=== PATIENT | male | born 1940 | race Caucasian/White ===

== ENCOUNTER → 2017-06-22 | Outpatient (CLI) | payer MEDICARE, BC ==
--- NOTE | 2017-06-22 13:02 | CT ---
EXAMINATION TYPE: CT abdomen wo con DATE OF EXAM: 06/22/2017 COMPARISON: NONE HISTORY: Follow up renal cancer per patient. Left sided nephrectomy CT DLP: 731 mGycm Automated exposure control for dose reduction was used. TECHNIQUE: Helical acquisition of images was performed from the lung bases through the top of iliac crest to include entire abdomen. CONTRAST: Performed with Oral Contrast and without IV contrast. FINDINGS: There is dependent atelectasis in the dependent portions of the lungs. There is no pericard ial fluid. There is a small left effusion. The heart is not enlarged. There is a small hiatal hernia. There is a partial eventration of the right hemidiaphragm. Within the abdomen, the liver is normal in size. There is a 5.6 mm low attenuating lesion in the medi al segment of the left lobe of the liver too small accurately characterize. There is evidence of chol elithiasis. The spleen is unremarkable. Both adrenal glands are normal. Left kidney has been removed. There are multiple right-sided renal calculi. The largest is in the low er pole and measures 1.7 cm. There is parapelvic cysts in the upper pole. There are are low attenuati ng lesions arising from the upper pole either representing 2 cysts measuring 4 and 4.8 cm respectivel y. This should BE confirmed with ultrasound to exclude a solid lesion. The pancreas is poorly visualized. There is no significant retroperitoneal adenopathy. There is a moderate stool burden. There is diverticular change in the left side of the colon. Small b owel loops are normal. There is facet arthropathy in the lower lumbar facets. There are 2 sclerotic foci within the left maryjane ac bone. This hypertrophic spondylosis in the dorsal spine. IMPRESSION: 1. STATUS POST LEFT NEPHRECTOMY. 2. SMALL HIATAL HERNIA. 3. PARTIAL EVENTRATION OF THE RIGHT HEMIDIAPHRAGM. 4. TINY LESION IN THE MEDIAL SEGMENT OF THE LEFT LOBE OF THE LIVER TOO SMALL ACCURATELY CHARACTERIZE. THIS SHOULD BE FURTHER INVESTIGATED WITH ULTRASOUND. 5. RIGHT-SIDED NEPHROLITHIASIS. 6. PARAPELVIC CYSTS IN THE UPPER POLE ON THE RIGHT. 7. COMPLEX LOW ATTENUATING MASS IN THE UPPER POLE OF THE RIGHT. ULTRASOUND WOULD BE SUGGESTED TO EXCL UDE A SOLID MASS. 8. CONSTIPATION. 9. DEGENERATIVE CHANGES WITHIN THE SPINE. 10. 2 SCLEROTIC FOCI WITHIN THE LEFT ILIAC BONE. ALTHOUGH THESE LIKELY REPRESENT BONE ISLANDS NUCLEAR MEDICINE WHOLE BODY BONE SCAN WOULD BE SUGGESTED TO EXCLUDE METASTASES.
== END | disposition home or self-care (01) ==
LOC: RADCTMAIN 11:48
PROVIDERS: ATTEND Urology
DX: C64.1 Malignant neoplasm of right kidney, except renal pelvis (principal); K76.9 Liver disease, unspecified; N20.0 Calculus of kidney; N28.1 Cyst of kidney, acquired; K59.00 Constipation, unspecified; N28.89 Other specified disorders of kidney and ureter; K44.9 Diaphragmatic hernia without obstruction or gangrene; Z90.5 Acquired absence of kidney
CPT/HCPCS: 74150

== ENCOUNTER → 2017-09-06 | Outpatient (CLI) | payer MEDICARE, BC ==
--- NOTE | 2017-09-06 10:06 | US ---
EXAMINATION TYPE: US abdomen comp/pelvis limited DATE OF EXAM: 09/06/2017 COMPARISON: CT abdomen June 22, 2017 CLINICAL HISTORY: C64.4 R Kidney Carcinoma R32 Urinary Incontinence. H/O renal carcinoma, left kidney removed, pt states he feels unable to empty bladder completely EXAM MEASUREMENTS: Liver Length: 16.0 cm Gallbladder Wall: 0.2 cm CBD: 0.4 cm Spleen: 13.2 cm Right Kidney: 15.3 x 7.2 x 7.0 cm Left Kidney: Surgically absent Post Void Residual: 37.8 mL Pancreas: Obscured by bowel gas Liver: Cyst with septation= 1.2 x 0.8 x 1.2 cm/ Ill-defined hypoechoic lesion left lobe= 1.4 x 1.2 x 1.3 cm Gallbladder: Non-mobile gallstones in neck CBD: wnl Spleen: Slightly enlarged Right Kidney: Complex lesion upper pole= 7.6 x 4.2 x 4.3 cm, multiple renal calculi, largest at lowe r pole= 1.2 cm Left Kidney: Surgically absent Upper IVC: wnl Abd Aorta: Proximal portion upper limits of normal, mid and distal obscured by overlying bowel gas Bladder: Irregular posterior wall Bilateral Jets Seen No Normal Post Void Residual (normal less than 50ml) Yes Suboptimal study as detailed above. Visualized liver is heterogeneously hyperechoic in appearance whi ch correlates with diffuse fatty infiltration on CT. Evaluation for focal masses is suboptimal due to the marked heterogeneity. Technologist castillo nonspecific 1.4 cm round slightly hypoechoic lesion lef t hepatic dome too small to further characterize per presumed benign. Shadowing gallstones are seen in gallbladder which correlates with CT. Some are felt not mobile durin g real-time scanning per technologist towards the neck. No pericholecystic fluid collection or abnorm al gallbladder wall thickening is seen. Multiple shadowing right-sided renal calculi are redemonstrated. There is partial exophytic lobulated nonsimple cyst upper pole level right kidney with suggestion of septation that warrants follow-up es pecially given patient's history of left-sided renal cell carcinoma. Spleen is mildly enlarged in size at 13.2 cm on long axis. No suspicious focal intrasplenic mass is p resent. Urinary bladder is poorly distended. Bilateral distal ureter jets are not seen. After voiding there i s slight decrease in volume, calculated volume is just under 40 cc. Prevoid volume is around 70 cc. IMPRESSION: 1. A lobulated partially exophytic nonsimple 7.6 cm cyst upper pole level right kidney, cystic neopla sm needs to be excluded especially given history of left-sided renal cell carcinoma, further investig ation with multi phase renal protocol CT or MRI is advised. 2. Poor voiding of the bladder with only emptying of 35-40% on attempted voiding. 3. Gallstones redemonstrated without secondary ultrasound evidence for acute cholecystitis.
== END | disposition home or self-care (01) ==
LOC: RADUSWWP 08:52
PROVIDERS: ATTEND Family Medicine
DX: C64.9 Malignant neoplasm of unspecified kidney, except renal pelvis (principal); N28.1 Cyst of kidney, acquired; K80.20 Calculus of gallbladder without cholecystitis without obstruction
CPT/HCPCS: 76700; 76857

== ENCOUNTER 2019-03-11 09:17 | Day surgery (SDC) | payer MEDICARE, BC ==
[2019-03-06 15:44] VITALS: BMI 36.6
[~2019-03-11 09:17] MED LIST: LACTATED RINGERS 1,000 ML IV SCH
[2019-03-11 11:04] VITALS: RESP 16; TEMP 97.8
[2019-03-11] MEDS ORDERED: LIDOCAINE 1% 20 ML VIAL (10MG/ML) FOR IV START INTRADERMA ONE (11:21)
[2019-03-11] MEDS ORDERED: PROPOFOL 10 MG/ML 20 ML VIAL IV ONE (13:13)
--- NOTE | 2019-03-11 14:07 | P.PCN ---
Date of Procedure: 03/11/19 Description of Procedure: BRIEF HISTORY: 78-year-old male seen in clinic with complaints of rectal bleeding, dark stool and hemorrhoids. At that time he was reporting the sensation of incomplete evacuation. He denied any of the abdominal pain. He did report a history of urinary bowel incontinence. His last colonoscopy was reported as proximal been 6 years ago at which time he had the procedure as part of his workup prior to his nephrectomy. He reports soft bowel movements approximately 4 times daily and is been having blood per rectum for possibly 4 months. PROCEDURE PERFORMED: Colonoscopy with polypectomy. PREOPERATIVE DIAGNOSIS: Painless rectal bleeding, altered bowel function. ESTIMATED BLOOD LOSS: Minimal. IV sedation per Anesthesia. PROCEDURE: After informed consent was obtained, the patient, was brought into the endoscopy unit. IV sedation was administered by Anesthesia under continuous monitoring. Digital rectal examination was normal. Initially the Olympus CF-190 flexible video colonoscope was then inserted in the rectum, gradually advanced into the cecum without any difficulty. Careful examination was performed as the scope was gradually being withdrawn. Ileocecal valve and the appendiceal orifice were visualized and appeared normal. Terminal ileum was intubated and appeared normal. Prep was excellent. Mucosa of the cecum, ascending colon, transverse colon, descending colon, sigmoid colon, and rectum appeared normal. Small 1 mm sessile cecal polyp removed with cold forcep polypectomy. Diminutive 3 mm transverse colon polyp removed with cold forcep polypectomy. Diminutive 3 mm rectal polyp removed with cold forcep polypectomy. Moderate diverticulosis worse in the left colon. Mild internal hemorrhoids. Retroflexion was performed in the rectum and no lesions were seen. The patient tolerated the procedure well. IMPRESSION: 3 diminutive polyps removed with cold forcep polypectomy from the cecum, transverse colon and rectum. Moderate diverticulosis. Mild internal hemorrhoids. RECOMMENDATIONS: Findings of this examination were discussed with the patient. Okay to resume high-fiber diet. Would recommend local hemorrhoidal treatment with sitz baths, and tux wipes. Await pathology from biopsies. Follow up in gastroenterology clinic as previously scheduled.
[2019-03-11 14:16] VITALS: BP 124/85; PULSE 83
== END 2019-03-11 15:02 | disposition home or self-care (01) ==
LOC: ORWHC2ENDO 09:17
PROVIDERS: ATTEND Internal Medicine
DX: D12.3 Benign neoplasm of transverse colon (principal); K57.90 Diverticulosis of intestine, part unspecified, without perforation or abscess without bleeding; D12.8 Benign neoplasm of rectum; K63.5 Polyp of colon; K64.8 Other hemorrhoids; Z88.8 Allergy status to other drugs, medicaments and biological substances; E78.5 Hyperlipidemia, unspecified; I10 Essential (primary) hypertension; I48.91 Unspecified atrial fibrillation; E07.9 Disorder of thyroid, unspecified; Z85.528 Personal history of other malignant neoplasm of kidney; Z79.01 Long term (current) use of anticoagulants; Z79.890 Hormone replacement therapy; Z79.899 Other long term (current) drug therapy
CPT/HCPCS: 88305; 45380; J2704

== ENCOUNTER → 2019-07-23 | Outpatient (CLI) | payer MEDICARE, BC ==
--- NOTE | 2019-07-23 16:43 | XR ---
EXAMINATION TYPE: XR abdomen 1V DATE OF EXAM: 07/23/2019 HISTORY: Pain Comparison: None.Single KUB is submitted for interpretation. Findings: Right renal calculi: Multiple large right-sided renal calculi measuring 2.3 cm, 1.4 cm and 1.5 cm res pectively. Right ureteral calculi: None Visualized. Left renal calculi: Cannot exclude a 1 cm calculus overlying the upper pole of the left kidney. Left ureteral calculi: 6.5 mm calculus left mid ureter. Pelvic calcifications: None Visualized. Bowel gas pattern is unremarkable. No free air. No mass effects. IMPRESSION: 1. Bilateral nephrolithiasis. In addition I cannot exclude left-sided ureterolithiasis as noted.
== END | disposition home or self-care (01) ==
LOC: RADXRMAIN 11:32
PROVIDERS: ATTEND Urology
DX: N20.0 Calculus of kidney (principal)
CPT/HCPCS: 74018

== ENCOUNTER → 2019-08-12 | Outpatient (CLI) | payer MEDICARE, BC ==
[2019-08-12 12:18] LABS: Appearance,Urine Clear (Clear); Bilirubin,Urine Negative (Negative); Blood,Urine Negative (Negative); Color,Urine Yellow; Glucose,Urine (UA) Negative (Negative); Hyaline Casts,Urine 1 /lpf (0-2); Ketones,Urine Negative (Negative); Leukocyte Esterase,Urine Trace (Negative); Mucus,Urine Rare /hpf; Nitrite,Urine Negative (Negative); Protein,Urine Negative (Negative); RBC,Urine <1 /hpf (0-5); Specific Gravity,Urine 1.023 (1.001-1.035); Squamous Epithelial Cell,Urine <1 /hpf (0-4); Urobilinogen,Urine <2.0 mg/dL (<2.0); WBC,Urine 8 /hpf (0-5)
== END | disposition home or self-care (01) ==
LOC: LABPAT 10:35
PROVIDERS: ATTEND Urology
DX: Z01.812 Encounter for preprocedural laboratory examination (principal); N20.0 Calculus of kidney; I10 Essential (primary) hypertension; Z79.899 Other long term (current) drug therapy
CPT/HCPCS: 81001; 86850; 86900; 86901; 87086

== ENCOUNTER 2019-08-19 12:21 | Inpatient (IN) | payer MEDICARE, BC ==
--- NOTE | 2019-08-19 07:38 | P.GSHP ---
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, He has a history if kidney stones and has increasing growth of the stones on the right They are now large We have decided to remove them so they don't compromise his solitary kidney The risks and complications have been discussed - Constitutional Constitutional: Denies chills, Denies fever - EENT Eyes: denies blurred vision, denies pain Ears, nose, mouth and throat: Denies headache, Denies sore throat - Cardiovascular Cardiovascular: Denies chest pain, Denies shortness of breath - Respiratory Respiratory: Denies cough, Denies 7 - Gastrointestinal Gastrointestinal: Denies abdominal pain, Denies diarrhea, Denies nausea, Denies vomiting - Genitourinary (Female) Genitourinary: Denies dysuria, Denies hematuria - Genitourinary (Male) Genitourinary: Denies dysuria, Denies hematuria - Musculoskeletal Musculoskeletal: Denies myalgias - Integumentary Integumentary: Denies pruritus, Denies rash - Neurological Neurological: Denies numbness, Denies weakness - Psychiatric Psychiatric: Denies anxiety, Denies depression - Endocrine Endocrine: Denies fatigue, Denies weight change Past Medical History Past Medical History: Atrial Fibrillation, Asthma, Cancer, Chest Pain / Angina, Heart Failure, COPD, GERD/Reflux, Hyperlipidemia, Hypertension, Osteoarthritis (OA), Pneumonia, Sleep Apnea/CPAP/BIPAP, Thyroid Disorder Additional Past Medical History / Comment(s): occ. palpitations, no cpap used, hx rectal bleeding, diverticulitis, stage III chronic kidney disease, hx left kidney cancer, hx bowel obstruction, weakness left leg, neuropathy julienne feet, c- diff February 2013, now having low BP, pneumonia 06/2019, History of Any Multi-Drug Resistant Organisms: None Reported Past Surgical History: Bowel Resection, Heart Catheterization, Hernia Repair, Tonsillectomy Additional Past Surgical History / Comment(s): left nephrectomy, bowel resection for obstruction x 2, ventral hernia reapair, julienne inguinal hernia, julienne cataract, repair macular pucker-not sure which eye Past Anesthesia/Blood Transfusion Reactions: Unable to Obtain Additional Past Anesthesia/Blood Transfusion Reaction / Comment(s): adopted-no family hx Smoking Status: Former smoker - Past Family History Mother Family Medical History: Unable to Obtain Additional Family Medical History / Comment(s): adopted Medications and Allergies Home Medications Medication Instructions Recorded Confirmed Type Albuterol Inhaler [Ventolin Hfa 2 puff INHALATION QID PRN 03/06/19 08/14/19 History Inhaler] Atorvastatin Calcium [Lipitor] 20 mg PO HS 03/06/19 08/14/19 History Fluticasone Nasal Noble [Flonase 1 spray EA NOSTRIL DAILY 03/06/19 08/14/19 History Nasal Noble] Levothyroxine Sodium [Synthroid] 50 mcg PO DAILY 03/06/19 08/14/19 History Metoprolol Tartrate [Lopressor] 50 mg PO BID 03/06/19 08/14/19 History Mometasone Furoate [Asmanex] 1 puff INHALATION BID 03/06/19 08/14/19 History Omeprazole [PriLOSEC] 20 mg PO AC-BRKFST 03/06/19 08/14/19 History Potassium Chloride [K-Tab ER] 10 meq PO DAILY 03/06/19 08/14/19 History Spironolactone [Aldactone] 25 mg PO DAILY 03/06/19 08/14/19 History Tamsulosin HCl [Flomax] 0.4 mg PO BID 03/06/19 08/14/19 History Warfarin [Coumadin] 5 mg PO HS 03/06/19 08/14/19 History Furosemide [Lasix] 20 mg PO BID 08/14/19 08/14/19 History Ipratropium-Albuterol Nebulize 0 ml INHALATION TID PRN 08/14/19 08/14/19 History [Duoneb 0.5 mg-3 mg/3 ml Soln] Midodrine [ProAmatine] 10 mg PO TID 08/14/19 08/14/19 History Nitroglycerin Sl Tabs [Nitrostat] 0.4 mg SUBLINGUAL Q5M PRN 08/14/19 08/14/19 History Allergies Allergy/AdvReac Type Severity Reaction Status Date / Time lactose Allergy Unknown Verified 08/14/19 14:41 quinidine Allergy Swelling Verified 08/14/19 14:40 dust,grass,animal dander Allergy Dyspnea Uncoded 08/14/19 14:40 Surgical - Exam - General well developed, well nourished, no distress - Eyes PERRL - ENT no hearing loss - Neck trachea midline - Cardiovascular Rhythm: irregularly irregular - Abdomen Abdomen: soft, non tender - Genitourinary normal penis with no external lesions, testicles present - Rectum Rectum: normal sphincter tone - Integumentary no rash, no growths - Neurologic normal coordination, normal sensation - Musculoskeletal normal gait, normal posture - Psychiatric oriented to time, oriented to person, oriented to place, speech is normal, memory intact Results - Imaging Abdominal x-ray: report reviewed, image reviewed CT scan - abdomen: report reviewed, image reviewed CT scan - pelvis: report reviewed, image reviewed Assessment and Plan Assessment: Impression: Large right renal calculi Plan> Pcnl right
[2019-08-19] MEDS ORDERED: DEXAMETHASONE SOD PHOSPHATE 10 MG/ML 1 ML VIAL IV ONE (13:28)
[2019-08-19] MEDS ORDERED: MIDAZOLAM 2 MG/2 ML VIAL IV PRN (13:28)
[2019-08-19] MEDS ORDERED: ONDANSETRON 4 MG/2 ML VIAL IVP ONE (13:28)
--- NOTE | 2019-08-19 13:36 | XR ---
KUB HISTORY: Kidney stones Frontal KUB submitted and correlated to abdomen 07/23/2019 Calcification superimposed over the right kidney are again noted. Largest measures approximately 2.4 cm at the lower pole. Intermediate sized density measuring 15 mm on prior exam is no longer seen. Sma ller calculi are present overlying the lower pole the right kidney, at least 3, 2 of which are parenc hymal measuring approximately 6 to 7 mm. Smaller calcification measures 6 mm at this level. There is a metallic density superimposed over the upper pole the right kidney measuring approximately 7 to 8 m m. Focus of increased attenuation overlying the left sacral ala and ilium region is indeterminate but may represent bone islands or possibly intra-abdominal calcification. Possible phlebolith present in the right hemipelvis. Multiple surgical clips are present. No evident bowel obstruction or pneumoper itoneum. IMPRESSION: Right-sided nephrolithiasis. Additional findings above.
[2019-08-19] MEDS ORDERED: LIDOCAINE 1% 20 ML VIAL (10MG/ML) FOR IV START INTRADERMA ONE (13:45)
[2019-08-19] MEDS: LACTATED RINGERS 1,000 ML IV SCH (13:53)
[2019-08-19] MEDS ORDERED: LIDOCAINE 1% INJ 10MG/ML (20 ML MDV) ONE (13:54)
[2019-08-19] MEDS ORDERED: fentaNYL (PF) 50 MCG/ML 2 ML AMP ONE (13:54)
[2019-08-19] MEDS ORDERED: PROPOFOL 10 MG/ML 20 ML VIAL IV ONE (13:54)
[2019-08-19] MEDS ORDERED: PHENYLEPHRINE-0.9% NACL SYG 1 MG/10 ML SYRINGE ONE (13:54)
[2019-08-19] MEDS ORDERED: SUCCINYLCHOLINE CHLORIDE 100 MG/5 ML SYR IV ONE (13:54)
[2019-08-19 14:10] LABS: INR 1.6 (<1.2)
[2019-08-19] MEDS ORDERED: IOPAMIDOL-370 50ML BTL MISCELLANE ONE ×2 (14:17→15:18)
[2019-08-19] MEDS ORDERED: ALBUTEROL NEBULIZED 2.5 MG/3 ML INHALATION PRN (15:38)
[2019-08-19] MEDS ORDERED: NITROGLYCERIN SL TABS 0.4 MG TAB SUBLINGUAL PRN (15:38)
[2019-08-19] MEDS ORDERED: MAG HYDROX/AL HYDROX/SIMETH 30 ML CUP PO PRN (15:42)
[2019-08-19] MEDS ORDERED: NALOXONE 0.4 MG/ML 1 ML VIAL IV PRN (15:43)
[2019-08-19] MEDS ORDERED: HYDROmorphone PCA 10 MG/50 ML BAG IV PRN (15:43)
--- NOTE | 2019-08-19 15:54 | P.OP ---
Date of Procedure: 08/19/19 Preoperative Diagnosis: Right renal stone, large, solitary kidney Postoperative Diagnosis: Same Procedure(s) Performed: Cystoscopy, placement of 5-Austrian occluding balloon catheter right, percutaneous nephrostomy (Dr. Macedo) percutaneous nephroscopy right, per placement of 20- Austrian reentry nephrostomy [place]ot Anesthesia: SAMMIE Surgeon: Kris Harris Estimated Blood Loss (ml): 100 Pathology: none sent Condition: stable Disposition: PACU Indications for Procedure: The patient's a 78-year-old gentleman with a solitary right kidney who has a enlarging right renal stone. The stone is now greater than 2 cm. We have been watching this. Unfortunately the stone is almost doubled size in the last 2 years. I therefore recommended a percutaneous nephrostolithotomy to remove the large stone. My goal is to protect the kidney Description of Procedure: The patient is brought to the operating suite. He is given a general endotracheal anesthesia on the transport gurney. He's placed in a frog position with a sterile prep and drape. Cystoscopy Foroblique lens and 22-Austrian sheath identifies a normal urethra. The prostates minimally obstructing. The right ureteral orifice is identified and intubated with a 5-Austrian occluding balloon catheter which is passed up into the renal pelvis. It is secured to a 16-Austrian Herrera. The patient is placed in a prone position with care to airways and extremities. Sterile prep and drape was administered. Dr. Macedo of radiology performed or cutaneous access to the calyx that the large stone appears to reside in. We dilate the tract to 30-Austrian. Introduced the rigid sheath and looked throughout the collecting system on unable to identify the stone. An intraoperative nephrostogram identifies a stone being in an anterior calyx and relieve intubated the posterior calyx overlying the anterior calyx r adiographically. I attempted to pass a flexible scope into the anterior calyx but due to bleeding and it is difficult to do so. We discussed the possibility of intubating an upper pole calyx hours closer to the lung than I would like. I thus decided to terminate the procedure. My plan is to do a second look nephroscopy after the bleeding and swelling subsides. Hopefully can get in the anterior calyx and used laser lithotripsy to break the stone. The other options will be to do ureteroscopy, a second nephrostomy tube remained shockwave lithotripsy. Due to the long spidery calyces and a small intrarenal pelvis and the anatomy is complicating the situation. A 20-Austrian reentry nephrostomy tube was placed over the working wire. It is secured to the skin. The patient awake and returned recovery in good condition. Blood loss is approximately 100 mL. The situation has been discussed with the family.
--- NOTE | 2019-08-19 16:04 | FL ---
EXAMINATION TYPE: FL Perc Nephrostomy New Access DATE OF EXAM: 08/19/2019 COMPARISON: NONE HISTORY: Hydronephrosis, ureteral obstruction with staghorn calculus. PROCEDURE: Maximal barrier technique was utilized. The skin overlying the right kidney was localized using fluo roscopy and the overlying skin prepped and draped. Lidocaine used for local anesthesia. Skin madelaine w as made with a scalpel. Access was gained under fluoroscopy, following placement of a ureteral occlu ethan balloon by the referring clinician and instillation of air in the renal collecting system with a 21-gauge needle to the kidney. A suitable posterior calyx was chosen. A 0.018 inch wire was [employer]. The access site was dilated and subsequently a sheath was advanced into the renal pelvis follow ing dilation with balloon along the tract. Urine returned in the hub of the catheter. Lower pole calc ulus is within an anterior calyx and not well accessed from the nephrostomy site. Nephrostomy tube pl aced by the referring clinician. The patient remained in stable condition without complication. The patient was discharged to observation in the care of anesthesia. 12 minutes 13 seconds fluoroscopy time, intraoperative C-arm image documents the procedure IMPRESSION: STATUS POST NEPHROSTOMY PLACEMENT FOR NEPHROLITHOTOMY WITH FLUOROSCOPIC GUIDANCE. THIS PROCEDURE PER FORMED BY THE UNDERSIGNED.
[2019-08-19] MEDS: HYDROmorphone 0.5 MG/0.5 ML SYRINGE IVP PRN ×2 (16:08→16:25)
[2019-08-19] MEDS: ONDANSETRON 4 MG/2 ML VIAL IVP PRN (16:08)
[2019-08-19] MEDS: DEXTROSE 5%-0.45% NACL 1,000 ML IV SCH (17:10)
[2019-08-19] MEDS: FUROSEMIDE 20 MG TAB PO SCH (17:11)
[2019-08-19] MEDS: MIDODRINE 5 MG TAB PO SCH (17:53)
[2019-08-19 18:08] VITALS: BMI 36.4
[2019-08-19] MEDS: FLUTICASONE 110 MCG INHALER INHALATION SCH (19:34)
[2019-08-19] MEDS: ATORVASTATIN 20 MG TAB PO SCH (21:31)
[2019-08-19] MEDS: METOPROLOL TARTRATE 50 MG TAB PO SCH (21:31)
[2019-08-19] MEDS: TAMSULOSIN 0.4 MG CAP.ER.24H PO SCH (21:31)
[2019-08-20] MEDS: DEXTROSE 5%-0.45% NACL 1,000 ML IV SCH ×2 (05:28→15:04)
[2019-08-20] MEDS: LEVOTHYROXINE 50 MCG TAB PO SCH (05:28)
[2019-08-20] MEDS: ACETAMINOPHEN TAB 325 MG TAB PO PRN (06:02)
[2019-08-20] MEDS: ONDANSETRON 4 MG/2 ML VIAL IVP PRN (06:03)
[2019-08-20] MEDS ORDERED: KETOROLAC 30 MG/ML 1 ML VIAL IVP PRN (06:55)
[2019-08-20] MEDS ORDERED: HYDROcodone/APAP 5-325MG 1 EACH TAB PO PRN (06:57)
--- NOTE | 2019-08-20 06:57 | P.PN ---
Subjective Progress Note Date: 08/20/19 The patient is in his first postoperative day from a percutaneous nephroscopy and failed nephrostolithotomy on the right side. He did well overnight. He is having pain as the PACK MASTER makes him nauseated. His abdomen is soft. The dressing is dry. The urine is clear. I will discontinue the PACK MASTER. Since he is having pain I'll switch him to Toradol. He is having too much discomfort to be discharged home. We discussed the surgical issues. We'll make a final decision as to the next step in the next 24 hours. Objective - Vital Signs Vital signs: Vital Signs Temp 97.8 F 08/20/19 05:32 Pulse 74 08/20/19 05:32 Resp 18 08/20/19 05:32 BP 93/60 08/20/19 05:32 Pulse Ox 96 08/20/19 05:32 Intake & Output 08/19/19 08/19/19 08/20/19 06:59 18:59 06:59 Intake Total 960 1200 Output Total 550 600 Balance 410 600 Weight 115.212 kg 118 kg Intake: IV 960 Intake, IV Titration 1200 Amount Dextrose 5%-0.45% NaCl 1, 1200 000 ml @ 100 mls/hr IV . Q10H [facility] Rx#:[id number] Output: Drainage 600 Right Lower Posterior 600 Lateral Back Urine 450 Estimated Blood Loss 100 Other: Voiding Method Indwelling Catheter Indwelling Catheter - Labs CBC & Chem 7: 08/19/19 13:48 Labs: Abnormal Lab Results - Last 24 Hours (Table) 08/19/19 Range/Units 13:55 PT 16.0 H (9.0-12.0) sec INR 1.6 H (<1.2)
[2019-08-20] MEDS: FUROSEMIDE 20 MG TAB PO SCH ×2 (08:24→17:04)
[2019-08-20] MEDS: SPIRONOLACTONE 25 MG TAB PO SCH (08:24)
[2019-08-20] MEDS: METOPROLOL TARTRATE 50 MG TAB PO SCH ×2 (08:24→20:53)
[2019-08-20] MEDS: POTASSIUM CHLORIDE ER 10 MEQ TAB.ER.PRT PO SCH (08:24)
[2019-08-20] MEDS: PANTOPRAZOLE 40 MG TABLET PO SCH (08:24)
[2019-08-20] MEDS: TAMSULOSIN 0.4 MG CAP.ER.24H PO SCH ×2 (08:24→20:53)
[2019-08-20] MEDS: FLUTICASONE 50MCG/SPRAY NASAL 16GM EA NOSTRIL SCH (08:24)
[2019-08-20] MEDS: MIDODRINE 5 MG TAB PO SCH ×3 (08:25→17:04)
[2019-08-20] MEDS: FLUTICASONE 110 MCG INHALER INHALATION SCH ×2 (08:57→21:03)
[2019-08-20] MEDS: LACTATED RINGERS 1,000 ML IV SCH (12:54)
[2019-08-20] MEDS: ATORVASTATIN 20 MG TAB PO SCH (20:53)
[2019-08-21] MEDS: DEXTROSE 5%-0.45% NACL 1,000 ML IV SCH ×2 (00:45→09:31)
[2019-08-21] MEDS: LEVOTHYROXINE 50 MCG TAB PO SCH (06:12)
[2019-08-21] MEDS: ACETAMINOPHEN TAB 325 MG TAB PO PRN ×2 (06:14→13:46)
[2019-08-21] MEDS: PANTOPRAZOLE 40 MG TABLET PO SCH (09:27)
[2019-08-21] MEDS: TAMSULOSIN 0.4 MG CAP.ER.24H PO SCH (09:27)
[2019-08-21] MEDS: SPIRONOLACTONE 25 MG TAB PO SCH (09:27)
[2019-08-21] MEDS: POTASSIUM CHLORIDE ER 10 MEQ TAB.ER.PRT PO SCH (09:27)
[2019-08-21] MEDS: FUROSEMIDE 20 MG TAB PO SCH (09:27)
[2019-08-21] MEDS: METOPROLOL TARTRATE 50 MG TAB PO SCH (09:28)
[2019-08-21] MEDS: FLUTICASONE 50MCG/SPRAY NASAL 16GM EA NOSTRIL SCH (09:28)
[2019-08-21] MEDS: MIDODRINE 5 MG TAB PO SCH ×2 (09:28→13:46)
[2019-08-21] MEDS: FLUTICASONE 110 MCG INHALER INHALATION SCH (09:41)
--- NOTE | 2019-08-21 10:21 | P.PN ---
Subjective Progress Note Date: 08/21/19 The patient is in his second postoperative day from a right percutaneous nephrostomy, nephroscopy and failed nephrostolithotomy. I reviewed the situation with the patient and the plan is to do a secondary nephroscopy and hopeful nephrostolithotomy next week. Clinically the patient seems to be doing well. His pain is controlled. Since he only has a solitary functioning right kidney most the urine is coming out of the nephrostomy tube and there is very little voided urine. Vital signs are stable and is afebrile. The real issue is nephrostomy tube care management till I do his procedure which I prefer to do early next week. He lives by himself. His daughters live a half and half to 45 minutes away. They both work. We will discuss with the daughters and perhaps visiting nurse to be able to check on his tube daily. The drainage management is easily handled by the patient but dressing care would require a second person. We'll explore this this afternoon. Objective - Vital Signs Vital signs: Vital Signs Temp 97.8 F 08/21/19 04:55 Pulse 72 08/21/19 04:55 Resp 16 08/21/19 04:55 BP 108/67 08/21/19 04:55 Pulse Ox 94 L 08/21/19 04:55 Intake & Output 08/20/19 08/21/19 08/21/19 18:59 06:59 18:59 Intake Total 1490 Output Total 605 2100 Balance -605 -610 Intake: Intake, IV Titration 900 Amount Dextrose 5%-0.45% NaCl 1, 900 000 ml @ 100 mls/hr IV . Q10H [facility] Rx#:[id number] Oral 590 Output: Drainage 575 1850 Right Lower Posterior 575 1850 Lateral Back Urine 30 250 Other: Voiding Method Indwelling Catheter Indwelling Catheter - Labs CBC & Chem 7: 08/19/19 13:48
[2019-08-21 12:18] VITALS: BP 110/73; PULSE 74; RESP 17; TEMP 97.7
--- NOTE | 2019-08-21 13:20 | P.DS ---
Providers Date of admission: 08/20/19 16:08 Attending physician: Kris Harris Primary care physician: Sharron Lira [facility] Course: the patient was admitted 08/19/2019 for a right pcnl to a large growing stone in a solitary kidney. I was unable to access the stone due to location in an anterior calyx in thelower pole A 20 fr renetry malecot was placed for a secondary pcnl. 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 We will proceed with a secondary pcnl He will d/c home with the the n tube His condition i good Patient Condition at Discharge: Good Plan - Discharge Summary Discharge Rx Participant: No New Discharge Prescriptions: No Action Potassium Chloride [K-Tab ER] 10 meq PO DAILY Omeprazole [PriLOSEC] 20 mg PO AC-BRKFST Levothyroxine Sodium [Synthroid] 50 mcg PO DAILY Tamsulosin HCl [Flomax] 0.4 mg PO BID Mometasone Furoate [Asmanex] 1 puff INHALATION BID Atorvastatin Calcium [Lipitor] 20 mg PO HS Albuterol Inhaler [Ventolin Hfa Inhaler] 2 puff INHALATION QID PRN PRN Reason: sob Warfarin [Coumadin] 5 mg PO HS Spironolactone [Aldactone] 25 mg PO DAILY Metoprolol Tartrate [Lopressor] 50 mg PO BID Fluticasone Nasal [place] [Flonase Nasal [place]] 1 spray EA NOSTRIL DAILY Furosemide [Lasix] 20 mg PO BID Ipratropium-Albuterol Nebulize [Duoneb 0.5 mg-3 mg/3 ml Soln] 0 ml INHALATION TID PRN PRN Reason: sob Nitroglycerin Sl Tabs [Nitrostat] 0.4 mg SUBLINGUAL Q5M PRN PRN Reason: Chest Pain Midodrine [ProAmatine] 10 mg PO TID Discharge Medication List Albuterol Inhaler [Ventolin Hfa Inhaler] 2 puff INHALATION QID PRN 03/06/19 [History] Atorvastatin Calcium [Lipitor] 20 mg PO HS 03/06/19 [History] Fluticasone Nasal [place] [Flonase Nasal [place]] 1 spray EA NOSTRIL DAILY 03/06/19 [History] Levothyroxine Sodium [Synthroid] 50 mcg PO DAILY 03/06/19 [History] Metoprolol Tartrate [Lopressor] 50 mg PO BID 03/06/19 [History] Mometasone Furoate [Asmanex] 1 puff INHALATION BID 03/06/19 [History] Omeprazole [PriLOSEC] 20 mg PO AC-BRKFST 03/06/19 [History] Potassium Chloride [K-Tab ER] 10 meq PO DAILY 03/06/19 [History] Spironolactone [Aldactone] 25 mg PO DAILY 03/06/19 [History] Tamsulosin HCl [Flomax] 0.4 mg PO BID 03/06/19 [History] Warfarin [Coumadin] 5 mg PO HS 03/06/19 [History] Furosemide [Lasix] 20 mg PO BID 08/14/19 [History] Ipratropium-Albuterol Nebulize [Duoneb 0.5 mg-3 mg/3 ml Soln] 0 ml INHALATION TID PRN 08/14/19 [History] Midodrine [ProAmatine] 10 mg PO TID 08/14/19 [History] Nitroglycerin Sl Tabs [Nitrostat] 0.4 mg SUBLINGUAL Q5M PRN 08/14/19 [History] Follow up Appointment(s)/Referral(s): Kris Harris MD [STAFF PHYSICIAN] - 08/27/19 10:00 am Patient Instructions/Handouts: Kidney Stones (DC), Nephrostomy Tube Care (DC) Discharge Disposition: HOME SELF-CARE
[2019-08-21] MEDS: LACTATED RINGERS 1,000 ML IV SCH (13:37)
[2019-08-21] MEDS ORDERED: DOCUSATE 100 MG CAP PO STA (13:39)
--- NOTE | 2019-09-02 12:12 | CDI ---
BleeDocumentation Clarification Form Date: 08/29/2019 2:02:00 PM From: Mayuri Hernandez Phone: If you have a question about this query, please contact Nabila Melendezluannadama, Radiation Oncology Nurse at [phone] Admit Date: 08/20/2019 4:08:00 PM Patient Name: Tony Oscar Visit Number: [id number] Discharge Date: 08/21/2019 3:54:00 PM ATTENTION: The Clinical Documentation Specialists (CDI) and [facility] Coding Staff appreciate your assistance in clarifying documentation. Please respond to the clarification below the line at the bottom and electronically sign. The CDI & [facility] Coding staff will review the response and follow-up if needed. Please note: Queries are made part of the Legal Health Record. If you have any questions, please contact the author of this message via ITS. Dr. Kris Harris Patient has large kidney stone increasing in size and right solitary kidney. Patient had Percutaneous nephrostomy tube placement. Per OP report, you attempted to pass a flexible scope into the anterior calyx but due to bleeding it is difficult to do so. Procedure was terminated. Plan is to do a second look nephroscopy when bleeding and swelling subside. Please clarify if bleeding and swelling were caused by the renal stone or from the scope. Patients Admitting Diagnosis: Solitary right kidney with kidney stone anterior calyx. Post-Operative Diagnosis: same Procedure performed: Placement 5-Czech occluding balloon catheter rt, perc nephrostomy, right nephroscop In order to accurately reflect this patients severity of illness, please clarify the source of bleeding-- Bleeding due to Underlying Renal Calculus Bleeding due to Nephroscopy Other, please specify Unable to determine Bleeding due to nephroscopy but an expected/acceptable situation for this procedure. HENRIETTA/PREETHI 09/06/19 ELIUD
== END 2019-08-21 15:54 | disposition home health service (06) | DRG 694 ==
LOC: OR 12:21 → 3NMEDONC 16:20 → OR 08-20 16:07 → 3NMEDONC 08-20 16:08
PROVIDERS: ADMIT Urology; ATTEND Urology
PROC: BT111ZZ Fluoroscopy of Right Kidney using Low Osmolar Contrast (ICD-10-PCS; 2019-08-19)
PROC: 0T9330Z Drainage of Right Kidney Pelvis with Drainage Device, Percutaneous Approach (ICD-10-PCS; principal; 2019-08-19 13:45)
DX: N13.2 Hydronephrosis with renal and ureteral calculous obstruction (principal); E78.5 Hyperlipidemia, unspecified; G47.30 Sleep apnea, unspecified; I11.0 Hypertensive heart disease with heart failure; I48.91 Unspecified atrial fibrillation; I50.9 Heart failure, unspecified; J44.9 Chronic obstructive pulmonary disease, unspecified; K21.9 Gastro-esophageal reflux disease without esophagitis; Z79.01 Long term (current) use of anticoagulants; Z79.890 Hormone replacement therapy; Z79.899 Other long term (current) drug therapy; Z87.891 Personal history of nicotine dependence; Z90.5 Acquired absence of kidney; Z85.528 Personal history of other malignant neoplasm of kidney; Z90.49 Acquired absence of other specified parts of digestive tract; E07.9 Disorder of thyroid, unspecified; Z88.8 Allergy status to other drugs, medicaments and biological substances; Z91.011 Allergy to milk products; Z98.42 Cataract extraction status, left eye; Z98.41 Cataract extraction status, right eye; Z87.01 Personal history of pneumonia (recurrent); Z87.442 Personal history of urinary calculi; M19.90 Unspecified osteoarthritis, unspecified site; Z53.8 Procedure and treatment not carried out for other reasons
CPT/HCPCS: 50432; 74018; 84132; 85610; 86850; 86900; 86901; 94640; 94760; 94762

== ENCOUNTER 2019-08-23 21:10 | Emergency (ER) | payer MEDICARE, BC ==
[2019-08-23 22:25] LABS: Basophils % (A) 1 %; Eosinophils # (A) 0.4 k/uL (0-0.7); Eosinophils % (A) 5 %; HCT 40.5 % (39.0-53.0); HGB 13.8 gm/dL (13.0-17.5); Lymphocytes # (A) 2.4 k/uL (1.0-4.8); Lymphocytes % (A) 27 %; MCH 31.8 pg (25.0-35.0); MCHC 34.1 g/dL (31.0-37.0); MCV 93.4 fL (80.0-100.0); Mean Platelet Volume 7.1; Monocytes # (A) 0.9 k/uL (0-1.0); Monocytes % (A) 10 %; Neutrophils # (A) 4.8 k/uL (1.3-7.7); Neutrophils % (A) 55 %; Platelet Count 187 k/uL (150-450); RBC 4.34 m/uL (4.30-5.90); RDW 13.3 % (11.5-15.5); WBC 8.8 k/uL (3.8-10.6)
--- NOTE | 2019-08-23 22:29 | XR ---
EXAMINATION TYPE: XR KUB DATE OF EXAM: 08/23/2019 COMPARISON: 08/19/2019 HISTORY: Nephrostomy tube leakage TECHNIQUE: 2 views FINDINGS: There is no sign of intestinal obstruction or pneumoperitoneum. Fecal pattern is normal. Th ere is right side nephrostomy tube. Location is uncertain. There is a 2 cm calcification over the low er pole right kidney. There are numerous surgical clips in the abdomen. There is small left pleural e ffusion. IMPRESSION: Nonacute abdomen. Nephrostomy tube in uncertain location. No free air. Small left pleural effusion appears new compared to old exam.
[2019-08-23 22:34] LABS: Albumin 3.7 g/dL (3.5-5.0); Calcium 10.1 mg/dL (8.4-10.2); Potassium 4.5 mmol/L (3.5-5.1); Total Bilirubin 0.7 mg/dL (0.2-1.3); Total Protein 5.9 g/dL (6.3-8.2)
[2019-08-23] MEDS ORDERED: ACETAMINOPHEN TAB 325 MG TAB PO STA (22:57)
[2019-08-23 22:59] LABS: Appearance,Urine Turbid (Clear); Bilirubin,Urine Negative (Negative); Blood,Urine Large (Negative); Color,Urine Dark Red; Glucose,Urine (UA) Negative (Negative); Ketones,Urine Negative (Negative); Leukocyte Esterase,Urine Large (Negative); Nitrite,Urine Negative (Negative); PH, Urine 6.5 (5.0-8.0); Protein,Urine 2+ (Negative); RBC,Urine >182 /hpf (0-5); Urobilinogen,Urine <2.0 mg/dL (<2.0)
[2019-08-23 23:00] LABS: Specific Gravity,Urine 1.011 (1.001-1.035)
--- NOTE | 2019-08-23 23:40 | ED ---
General Adult HPI - General Source: EMS, RN notes reviewed, old records reviewed Mode of arrival: EMS Limitations: no limitations <Simone Willson - Last Filed: 08/23/19 23:38> <Dakota Lux - Last Filed: 08/26/19 07:49> - General Chief complaint: Abdominal Pain Stated complaint: Flank pain Time Seen by Provider: 08/23/19 21:17 - History of Present Illness Initial comments: 78-year-old male patient past history significant for solitary kidney secondary to nephrectomy due to renal cell carcinoma, recent nephrostomy tube placement by Dr. Jaimes presents to ED for chief complaint of urine draining around the i nsertion site of nephrostomy tube. For these at some mild cramping bellyache of the suprapubic region which just began. Denies any other complaints. Systemic: Pt denies fatigue, fever/chills, rash. Pt denies weakness, night sweats, weight loss. Neuro: Pt denies headache, visual disturbances, syncope or pre-syncope. HEENT: Pt denies ocular discharge or irritation, otalgia, rhinorrhea, pharyngit is or notable lymphadenopathy. Cardiopulmonary: Pt denies chest pain, SOB, heart palpitations, dyspnea on exertion. Abdominal/GI: Pt denies n/v/d. : Pt denies dysuria, burning w/ urination, frequency/urgency. Denies new onset urinary or bowel incontinence. MSK: Pt denies myalgia, loss of strength or function in extremities. Neuro: Pt denies new onset weakness, paresthesias. (Simone Willson) - Related Data Home Medications Medication Instructions Recorded Confirmed Albuterol Inhaler [Ventolin Hfa 2 puff INHALATION QID PRN 03/06/19 08/23/19 Inhaler] Atorvastatin Calcium [Lipitor] 20 mg PO HS 03/06/19 08/23/19 Fluticasone Nasal [place] [Flonase 1 spray EA NOSTRIL DAILY 03/06/19 08/23/19 Nasal [place]] Levothyroxine Sodium [Synthroid] 50 mcg PO DAILY 03/06/19 08/23/19 Metoprolol Tartrate [Lopressor] 50 mg PO BID 03/06/19 08/23/19 Mometasone Furoate [Asmanex] 1 puff INHALATION BID 03/06/19 08/23/19 Omeprazole [PriLOSEC] 20 mg PO AC-BRKFST 03/06/19 08/23/19 Potassium Chloride [K-Tab ER] 10 meq PO DAILY 03/06/19 08/23/19 Spironolactone [Aldactone] 25 mg PO DAILY 03/06/19 08/23/19 Tamsulosin HCl [Flomax] 0.4 mg PO BID 03/06/19 08/23/19 Warfarin [Coumadin] 5 mg PO HS 03/06/19 08/23/19 Furosemide [Lasix] 20 mg PO BID 08/14/19 08/23/19 Ipratropium-Albuterol Nebulize 0 ml INHALATION TID PRN 08/14/19 08/23/19 [Duoneb 0.5 mg-3 mg/3 ml Soln] Midodrine [ProAmatine] 10 mg PO TID 08/14/19 08/23/19 Nitroglycerin Sl Tabs [Nitrostat] 0.4 mg SUBLINGUAL Q5M PRN 08/14/19 08/23/19 Acetaminophen Tab [Tylenol Tab] 325 mg PO Q4H PRN 08/23/19 08/23/19 Allergies Allergy/AdvReac Type Severity Reaction Status Date / Time lactose Allergy Unknown Verified 08/23/19 21:19 quinidine Allergy Swelling Verified 08/23/19 21:19 dust,grass,animal dander Allergy Dyspnea Uncoded 08/23/19 21:19 Review of Systems ROS Other: All systems not noted in ROS Statement are negative. <Simone Willson - Last Filed: 08/23/19 23:38> ROS Other: All systems not noted in ROS Statement are negative. <Dakota Lux - Last Filed: 08/26/19 07:49> ROS Statement: Those systems with pertinent positive or pertinent negative responses have been documented in the HPI. Past Medical History Past Medical History: Atrial Fibrillation, Asthma, Cancer, COPD, GERD/Reflux, Hyperlipidemia, Hypertension, Pneumonia, Sleep Apnea/CPAP/BIPAP, Thyroid Disorder Additional Past Medical History / Comment(s): occ. palpitations, no cpap used, rectal bleeding, diverticulitis, stage III chronic kidney disease, hx kidney cancer, hx bowel obstruction, weakness left knee, neuropathy julienne feet, c-diff February 2013, History of Any Multi-Drug Resistant Organisms: C-DIFF Date of last positivie culture/infection: 2012 MDRO Source:: stool, Past Surgical History: Bowel Resection, Heart Catheterization, Hernia Repair Additional Past Surgical History / Comment(s): left nephrectomy, bowel resection for obstruction x 2, ventral hernia reapair, julienne inguinal hernia, julienne cataract, repair macular pucker-not sure which eye, right nephrostomy/ lithotomy, Past Anesthesia/Blood Transfusion Reactions: No Reported Reaction, Unable to Obtain Additional Past Anesthesia/Blood Transfusion Reaction / Comment(s): adopted-no family hx Past Psychological History: No Psychological Hx Reported Smoking Status: Former smoker Past Alcohol Use History: None Reported Past Drug Use History: None Reported - Past Family History Mother Family Medical History: Unable to Obtain Additional Family Medical History / Comment(s): adopted <Simone Willson - Last Filed: 08/23/19 23:38> General Exam Limitations: no limitations <Simone Willson - Last Filed: 08/23/19 23:38> - General Exam Comments Initial Comments: Constitutional: NAD, AOX3, Pt has pleasant affect. HEENT: NC/AT, trachea midline, neck supple, no lymphadenopathy. Posterior pharynx non erythematous, without exudates. External ears appear normal, without discharge. Mucous membranes moist. Eyes PERRLA, EOM intact. There is no scleral icterus. No pallor noted. Cardiopulmonary: RRR, no murmurs, rubs or gallops, no JVD noted. Lungs CTAB in anterior and posterior wu. No peripheral edema. Abdominal exam: Abdomen soft and non-distended. Abdomen mildly to suprapubic region. No other areas of abdominal tenderness.. Bowel sounds active in LLQ. No hepatosplenomegaly. No ecchymosis. The left nephrostomy tube, non-erythematous, no signs of infection. Neuro: CN II-XII grossly intact. No nuchal rigidity. No raccon eyes, no taylor sign, no hemotympanum. No cervical spinal tenderness. MSK: No posterior calf tenderness bilaterally, homans sign negative bilaterally. Posterior tibialis and radial pulse +2 bilaterally. Sensation intact in upper and lower extremities. Full active ROM in upper and lower extremities, 5/5 stregnth. 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 Jaimes presents to ED for chief complaint of urine draining around the insertion site of nephrostomy tube. For these at some mild cramping bellyache of the suprapubic region which just began. Denies any other complaints. Patient also stable, afebrile. Physical exam displayed benign dermatologic exam around nephrostomy tube. Abdomen mildly tender to suprapubic region. CBC non- impressive. Creatinine 1.60. This may be around patient's baseline, unknown. UA displayed +2 protein, hematuria. Will be cultured. Case is discussed with attending physician who examined patient and discussed case with Dr. Harris. He recccomended no further investigations, discharge of patient with outpatient follow up as scheduled. Pt reports that abdomen is feeling improved without intervention. Case discussed with Dr. Peralta. (Simone Willson) I saw this patient in conjunction with the physician dairy and food laboratory assistant. I performed independent history and physical exam. Agree with case management. (Dakota Wallace) - Lab Data Lab Results 08/23/19 08/23/19 08/23/19 Range/Units 22:00 22:00 22:00 WBC 8.8 (3.8-10.6) k/uL RBC 4.34 (4.30-5.90) m/uL Hgb 13.8 (13.0-17.5) gm/dL Hct 40.5 (39.0-53.0) % MCV 93.4 (80.0-100.0) fL MCH 31.8 (25.0-35.0) pg MCHC 34.1 (31.0-37.0) g/dL RDW 13.3 (11.5-15.5) % Plt Count 187 (150-450) k/uL Neutrophils % 55 % Lymphocytes % 27 % Monocytes % 10 % Eosinophils % 5 % Basophils % 1 % Neutrophils # 4.8 (1.3-7.7) k/uL Lymphocytes # 2.4 (1.0-4.8) k/uL Monocytes # 0.9 (0-1.0) k/uL Eosinophils # 0.4 (0-0.7) k/uL Basophils # 0.0 (0-0.2) k/uL Sodium 138 (137-145) mmol/L Potassium 4.5 (3.5-5.1) mmol/L Chloride 105 (98-107) mmol/L Carbon Dioxide 25 (22-30) mmol/L Anion Gap 8 mmol/L BUN 36 H (9-20) mg/dL Creatinine 1.62 H (0.66-1.25) mg/dL Est GFR (CKD-EPI)AfAm 46 (>60 ml/min/1.73 sqM) Est GFR (CKD-EPI)NonAf 40 (>60 ml/min/1.73 sqM) Glucose 99 (74-99) mg/dL Plasma Lactic Acid Hubert 0.9 (0.7-2.0) mmol/L Calcium 10.1 (8.4-10.2) mg/dL Total Bilirubin 0.7 (0.2-1.3) mg/dL AST 20 (17-59) U/L ALT 19 L (21-72) U/L Alkaline Phosphatase 56 (38-126) U/L Total Protein 5.9 L (6.3-8.2) g/dL Albumin 3.7 (3.5-5.0) g/dL Lipase 73 (23-300) U/L Urine Color Urine Appearance (Clear) Urine pH (5.0-8.0) Ur Specific [place] (1.001-1.035) Urine Protein (Negative) Urine Glucose (UA) (Negative) Urine Ketones (Negative) Urine Blood (Negative) Urine Nitrite (Negative) Urine Bilirubin (Negative) Urine Urobilinogen (<2.0) mg/dL Ur Leukocyte Esterase (Negative) Urine RBC (0-5) /hpf Urine WBC (0-5) /hpf 08/23/19 Range/Units 22:43 WBC (3.8-10.6) k/uL RBC (4.30-5.90) m/uL Hgb (13.0-17.5) gm/dL Hct (39.0-53.0) % MCV (80.0-100.0) fL MCH (25.0-35.0) pg MCHC (31.0-37.0) g/dL RDW (11.5-15.5) % Plt Count (150-450) k/uL Neutrophils % % Lymphocytes % % Monocytes % % Eosinophils % % Basophils % % Neutrophils # (1.3-7.7) k/uL Lymphocytes # (1.0-4.8) k/uL Monocytes # (0-1.0) k/uL Eosinophils # (0-0.7) k/uL Basophils # (0-0.2) k/uL Sodium (137-145) mmol/L Potassium (3.5-5.1) mmol/L Chloride (98-107) mmol/L Carbon Dioxide (22-30) mmol/L Anion Gap mmol/L BUN (9-20) mg/dL Creatinine (0.66-1.25) mg/dL Est GFR (CKD-EPI)AfAm (>60 ml/min/1.73 sqM) Est GFR (CKD-EPI)NonAf (>60 ml/min/1.73 sqM) Glucose (74-99) mg/dL Plasma Lactic Acid Hub[place] (0.7-2.0) mmol/L Calcium (8.4-10.2) mg/dL Total Bilirubin (0.2-1.3) mg/dL AST (17-59) U/L ALT (21-72) U/L Alkaline Phosphatase (38-126) U/L Total Protein (6.3-8.2) g/dL Albumin (3.5-5.0) g/dL Lipase (23-300) U/L Urine Color Dark Red Urine Appearance Turbid (Clear) Urine pH 6.5 (5.0-8.0) Ur Specific [place] 1.011 (1.001-1.035) Urine Protein 2+ H (Negative) Urine Glucose (UA) Negative (Negative) Urine Ketones Negative (Negative) Urine Blood Large H (Negative) Urine Nitrite Negative (Negative) Urine Bilirubin Negative (Negative) Urine Urobilinogen <2.0 (<2.0) mg/dL Ur Leukocyte Esterase Large H (Negative) Urine RBC >182 H (0-5) /hpf Urine WBC 169 H (0-5) /hpf Disposition Is patient prescribed a controlled substance at d/c from ED?: No <Simone Willson - Last Filed: 08/23/19 23:38> <Dakota Lux - Last Filed: 08/26/19 07:49> Clinical Impression: Leakage of nephrostomy catheter Disposition: HOME SELF-CARE Condition: Stable Instructions (If sedation given, give patient instructions): Nephrostomy Tube Care (ED) Additional Instructions: Patient to adhere to previously discussed treatment plan and will take medication(s) as directed. Patient to follow up with PCP in 1-2 days. Patient to return to ED if symptoms do not improve. Follow-up with primary care physician next week and urologist as scheduled. Return to ER if condition worsens. Referrals: Sharron Lira DO [Primary Care Provider] - 1-2 days Kris Harris MD [STAFF PHYSICIAN] - 1-2 days
[2019-08-23 23:42] VITALS: BP 101/67; PULSE 73; RESP 18; TEMP 97.5
== END 2019-08-24 00:47 | disposition home or self-care (01) ==
LOC: EC 21:10
DX: T83.032A Leakage of nephrostomy catheter, initial encounter (principal); R31.9 Hematuria, unspecified; R80.9 Proteinuria, unspecified; T83.84XA Pain due to genitourinary prosthetic devices, implants and grafts, initial encounter; I48.91 Unspecified atrial fibrillation; J44.9 Chronic obstructive pulmonary disease, unspecified; K21.9 Gastro-esophageal reflux disease without esophagitis; E78.5 Hyperlipidemia, unspecified; I12.9 Hypertensive chronic kidney disease with stage 1 through stage 4 chronic kidney disease, or unspecified chronic kidney disease; N18.3 Chronic kidney disease, stage 3 (moderate); E07.9 Disorder of thyroid, unspecified; Z87.891 Personal history of nicotine dependence; Z88.8 Allergy status to other drugs, medicaments and biological substances; Z91.018 Allergy to other foods; Z91.048 Other nonmedicinal substance allergy status; Z79.01 Long term (current) use of anticoagulants; Z79.51 Long term (current) use of inhaled steroids; Z79.890 Hormone replacement therapy; Z79.899 Other long term (current) drug therapy; Z90.49 Acquired absence of other specified parts of digestive tract; Z85.528 Personal history of other malignant neoplasm of kidney; Z90.5 Acquired absence of kidney
CPT/HCPCS: 36415; 74018; 80053; 81001; 83605; 83690; 85025; 87086; 99284

== ENCOUNTER 2019-08-27 10:48 | Day surgery (SDC) | payer MEDICARE, BC ==
[2019-08-23 10:38] VITALS: BMI 35.9
--- NOTE | 2019-08-26 11:25 | P.GSHP ---
History of Present Illness H&P Date: 08/26/19 78 male with a solitary right kidney and a large kidney stone He had a failed pcnl right lst week due to a complicated internal renal anatomy and and anterior placed stone the bleeding and edema has settled and he comes for a secondary pcnl right - Constitutional Constitutional: Denies chills, Denies fever - EENT Eyes: denies blurred vision, denies pain Ears, nose, mouth and throat: Denies headache, Denies sore throat - Cardiovascular Cardiovascular: Denies chest pain, Denies shortness of breath - Respiratory Respiratory: Denies cough, Denies 7 - Gastrointestinal Gastrointestinal: Denies abdominal pain, Denies diarrhea, Denies nausea, Denies vomiting - Genitourinary (Female) Genitourinary: Denies dysuria, Denies hematuria - Genitourinary (Male) Genitourinary: Denies dysuria, Denies hematuria - Musculoskeletal Musculoskeletal: Denies myalgias - Integumentary Integumentary: Denies pruritus, Denies rash - Neurological Neurological: Denies numbness, Denies weakness - Psychiatric Psychiatric: Denies anxiety, Denies depression - Endocrine Endocrine: Denies fatigue, Denies weight change Past Medical History Past Medical History: Atrial Fibrillation, Asthma, Cancer, COPD, GERD/Reflux, Hyperlipidemia, Hypertension, Pneumonia, Sleep Apnea/CPAP/BIPAP, Thyroid Disorder Additional Past Medical History / Comment(s): Nephrostomy tube 08/19/19, occ. palpitations, no cpap used, rectal bleeding, diverticulitis, stage III chronic kidney disease, hx kidney cancer, hx bowel obstruction, weakness left knee, neuropathy julienne feet, c-diff February 2013, History of Any Multi-Drug Resistant Organisms: None Reported Past Surgical History: Bowel Resection, Heart Catheterization, Hernia Repair Additional Past Surgical History / Comment(s): Rt nephrostomy tube, left nephrectomy, bowel resection for obstruction x 2, ventral hernia reapair, julienne inguinal hernia, julienne cataract, repair macular pucker-not sure which eye Past Anesthesia/Blood Transfusion Reactions: No Reported Reaction Additional Past Anesthesia/Blood Transfusion Reaction / Comment(s): adopted-no family hx Past Psychological History: No Psychological Hx Reported Smoking Status: Former smoker Past Alcohol Use History: None Reported Additional Past Alcohol Use History / Comment(s): quit smoking 1987, smoked for 30 yrs, 3 PPD Past Drug Use History: None Reported - Past Family History Mother Family Medical History: Unable to Obtain Additional Family Medical History / Comment(s): adopted Medications and Allergies Home Medications Medication Instructions Recorded Confirmed Type Albuterol Inhaler [Ventolin Hfa 2 puff INHALATION QID PRN 03/06/19 08/23/19 History Inhaler] Atorvastatin Calcium [Lipitor] 20 mg PO HS 03/06/19 08/23/19 History Fluticasone Nasal [place] [Flonase 1 spray EA NOSTRIL DAILY 03/06/19 08/23/19 History Nasal [place]] Levothyroxine Sodium [Synthroid] 50 mcg PO DAILY 03/06/19 08/23/19 History Metoprolol Tartrate [Lopressor] 50 mg PO BID 03/06/19 08/23/19 History Mometasone Furoate [Asmanex] 1 puff INHALATION BID 03/06/19 08/23/19 History Omeprazole [PriLOSEC] 20 mg PO AC-BRKFST 03/06/19 08/23/19 History Potassium Chloride [K-Tab ER] 10 meq PO DAILY 03/06/19 08/23/19 History Spironolactone [Aldactone] 25 mg PO DAILY 03/06/19 08/23/19 History Tamsulosin HCl [Flomax] 0.4 mg PO BID 03/06/19 08/23/19 History Warfarin [Coumadin] 5 mg PO HS 03/06/19 08/23/19 History Furosemide [Lasix] 20 mg PO BID 08/14/19 08/23/19 History Ipratropium-Albuterol Nebulize 0 ml INHALATION TID PRN 08/14/19 08/23/19 History [Duoneb 0.5 mg-3 mg/3 ml Soln] Midodrine [ProAmatine] 10 mg PO TID 08/14/19 08/23/19 History Nitroglycerin Sl Tabs [Nitrostat] 0.4 mg SUBLINGUAL Q5M PRN 08/14/19 08/23/19 History Acetaminophen Tab [Tylenol Tab] 325 mg PO Q4H PRN 08/23/19 08/23/19 History Allergies Allergy/AdvReac Type Severity Reaction Status Date / Time lactose Allergy Unknown Verified 08/23/19 21:19 quinidine Allergy Swelling Verified 08/23/19 21:19 dust,grass,animal dander Allergy Dyspnea Uncoded 08/23/19 21:19 Surgical - Exam - General well developed, well nourished, no distress - Eyes PERRL, normal ocular movement - ENT no hearing loss - Neck trachea midline - Respiratory normal respiratory effort - Cardiovascular Rhythm: irregularly irregular - Abdomen right nephrostomy tube Abdomen: non tender - Integumentary no rash, no growths - Musculoskeletal normal gait - Psychiatric oriented to time, oriented to person, oriented to place, speech is normal, memory intact Assessment and Plan Assessment: Impression: Retained right renal stone in a solitary kidney Plan: secondary pcnl
[~2019-08-27 10:48] MED LIST changes: +AMPICILLIN 1,000 MG in SODIUM CHLORIDE 0.9% 50 ML IVPB ONE; +DEXAMETHASONE SOD PHOSPHATE 10 MG/ML 1 ML VIAL IV ONE; +GENTAMICIN 130 MG in SODIUM CHLORIDE 0.9% 100 ML IVPB ONE; +HYDROmorphone 0.5 MG/0.5 ML SYRINGE IVP PRN; +LIDOCAINE 1% 20 ML VIAL (10MG/ML) FOR IV START INTRADERMA PRN; +MIDAZOLAM 2 MG/2 ML VIAL IV PRN; +ONDANSETRON 4 MG/2 ML VIAL IVP ONE; +SCOPOLAMINE 1.5MG/72HR PATCH TRANSDERM ONE
--- NOTE | 2019-08-27 11:49 | XR ---
KUB HISTORY: Kidney stone Frontal KUB and 2 images correlated prior KUB 08/23/2019 Right sided Malecot nephrostomy tube with ureteral extension is again noted. Surgical clips are prese nt in the left lower quadrant. Sclerotic densities again seen superimposed over the left sacral ala a nd posterior left ilium. Calcifications of the lower pole the right kidney are again seen, there is c alculus in the upper pole the right kidney also stable. Postop changes again noted in the left hemiab domen. Degenerative disc changes, facet arthropathy in the visualized spine. No evident bowel obstruc tion or pneumoperitoneum. Possible phleboliths in the pelvis, indeterminate calcifications are presen t. IMPRESSION: Stable exam. Right-sided nephrolithiasis. Postop changes.
[2019-08-27 11:54] VITALS: RESP 16
[2019-08-27 12:04] LABS: INR 1.1 (<1.2); Prothrombin Time 11.8 sec (9.0-12.0)
[2019-08-27 12:05] LABS: Basophils # (A) 0.1 k/uL (0-0.2); Basophils % (A) 1 %; Eosinophils # (A) 0.8 k/uL (0-0.7); Eosinophils % (A) 8 %; HCT 42.8 % (39.0-53.0); HGB 14.5 gm/dL (13.0-17.5); Lymphocytes # (A) 2.3 k/uL (1.0-4.8); Lymphocytes % (A) 24 %; MCH 31.8 pg (25.0-35.0); MCHC 33.8 g/dL (31.0-37.0); MCV 93.9 fL (80.0-100.0); Mean Platelet Volume 7.4; Monocytes # (A) 0.8 k/uL (0-1.0); Monocytes % (A) 8 %; Neutrophils # (A) 5.6 k/uL (1.3-7.7); Neutrophils % (A) 57 %; Platelet Count 202 k/uL (150-450); RBC 4.56 m/uL (4.30-5.90); RDW 13.4 % (11.5-15.5); WBC 9.9 k/uL (3.8-10.6)
[2019-08-27 12:12] LABS: Calcium 10.4 mg/dL (8.4-10.2); Potassium 4.8 mmol/L (3.5-5.1)
[2019-08-27] MEDS ORDERED: MIDODRINE 5 MG TAB PO ONE (12:29)
[2019-08-27] MEDS ORDERED: SUCCINYLCHOLINE CHLORIDE 100 MG/5 ML SYR IV ONE (13:38)
[2019-08-27] MEDS ORDERED: fentaNYL (PF) 50 MCG/ML 2 ML AMP ONE (13:38)
[2019-08-27] MEDS ORDERED: PROPOFOL 10 MG/ML 20 ML VIAL IV ONE (13:38)
[2019-08-27] MEDS ORDERED: PHENYLEPHRINE-0.9% NACL SYG 1 MG/10 ML SYRINGE ONE (13:38)
[2019-08-27] MEDS ORDERED: LIDOCAINE 1% INJ 10MG/ML (20 ML MDV) ONE (13:38)
[2019-08-27] MEDS ORDERED: ePHEDrine SULFATE/0.9% NACL/PF 50 MG/5 ML SYRINGE IV ONE (13:38)
[2019-08-27] MEDS ORDERED: IOPAMIDOL-370 50ML BTL IRRIGATION ONE ×2 (14:09→14:45)
--- NOTE | 2019-08-27 15:29 | P.OP ---
Date of Procedure: 08/27/19 Preoperative Diagnosis: Right renal stone Postoperative Diagnosis: Same Procedure(s) Performed: Secondary nephroscopy with failed nephrostolithotomy Anesthesia: SAMMIE Surgeon: Kris Harris Pathology: none sent Condition: stable Disposition: PACU Indications for Procedure: The patient is 78. He hasn't growing right lower pole renal stone. He underwent a percutaneous nephrostolithotomy attempt last week but this failed due to a complicated bifid intrarenal collecting system. Large stone is in the anterior lower pole calyx of. He comes for a second look nephrostomy and hopeful nephrostolithotomy alternatives have been discussed Description of Procedure: Patient brought the operating suite given a general anesthesia. A catheters placed sterilely. The patient's placed in prone position. Care to airways and extremities are maintained. A sterile prep and drape was administered. Through the established nephrostomy tube and 035 wires passed down the ureter. The nephrostomy tube was removed. I passed the flexible nephroscope into the collecting system. Finally into a lower pole calyx ostium and see the stone emanating. The angle to achieve that is extremely tight with both the nephroscope and ureteroscope. I attempt to place the laser on the stone but due to the angle I'm unable to do so. An intraoperative nephrostogram was obtained I have Dr. Macedo of radiology, and assessed so as we can decide whether a second nephrostomy tube would be appropriate. Given the anatomy, bifid system, long infundibula and the location along we did not feel a second stick would be beneficial and with a solitary kidney somewhat risky. I thus elected to terminate the procedure. The wires and nephroscope are removed. The dressing was placed Is awake and returned recovery room good condition. Options of treatment are to observe the stone make sure doesn't grown into the renal pelvis, open nephrolithotomy, attempted ureteroscopy and laser lithotripsy, shockwave lithotripsy, referral to a Medical Center. This will be discussed with the patient and a later time. I discussed this with the patient's daughters. The patient awake and in his condition is good.
[2019-08-27 15:44] VITALS: TEMP 97.2
--- NOTE | 2019-08-27 15:48 | FL ---
EXAMINATION TYPE: FL fluoroscopy <1hr DATE OF EXAM: 08/27/2019 CLINICAL HISTORY: Right-sided nephrolithiasis. Fluoroscopic documentation TECHNIQUE: Fluoroscopy. COMPARISON: None. FINDINGS: Fluoroscopic guidance was provided during procedure performed by Dr. Harris. A total of 9. 49 minutes of fluoroscopic time was utilized during the procedure and 3 spot images was acquired demo nstrating guidewire within the left renal collecting system and ureter. IMPRESSION: As Above.
[2019-08-27] MEDS ORDERED: LACTATED RINGERS 1,000 ML IV ONE (16:11)
[2019-08-27 16:45] VITALS: PULSE 92
[2019-08-27 16:55] VITALS: BP 107/73
== END 2019-08-27 17:10 | disposition home or self-care (01) ==
LOC: OR 10:48
PROVIDERS: ATTEND Urology
DX: N20.0 Calculus of kidney (principal); I12.9 Hypertensive chronic kidney disease with stage 1 through stage 4 chronic kidney disease, or unspecified chronic kidney disease; N18.3 Chronic kidney disease, stage 3 (moderate); Z87.891 Personal history of nicotine dependence; I48.91 Unspecified atrial fibrillation; J44.9 Chronic obstructive pulmonary disease, unspecified; K21.9 Gastro-esophageal reflux disease without esophagitis; E78.5 Hyperlipidemia, unspecified; G47.30 Sleep apnea, unspecified; E07.9 Disorder of thyroid, unspecified; Z87.01 Personal history of pneumonia (recurrent); R00.2 Palpitations; Z85.528 Personal history of other malignant neoplasm of kidney; Z90.5 Acquired absence of kidney; Z93.6 Other artificial openings of urinary tract status; K57.92 Diverticulitis of intestine, part unspecified, without perforation or abscess without bleeding; Z90.49 Acquired absence of other specified parts of digestive tract; Z98.49 Cataract extraction status, unspecified eye; Z79.01 Long term (current) use of anticoagulants; Z79.890 Hormone replacement therapy; Z79.899 Other long term (current) drug therapy; Z91.011 Allergy to milk products; Z88.8 Allergy status to other drugs, medicaments and biological substances; Z91.048 Other nonmedicinal substance allergy status; Z53.8 Procedure and treatment not carried out for other reasons
CPT/HCPCS: 86900; 86901; 80048; 85025; 85610; 86850; 76000; 74018; 50081; C1769 ×2; J1100; J2405; J2001; J3010; J1580; J0290; J2370; J0330; J2704; Q9967

== ENCOUNTER → 2020-04-10 | Outpatient (CLI) | payer MEDICARE, BC ==
--- NOTE | 2020-04-10 13:16 | XR ---
EXAMINATION TYPE: XR KUB DATE OF EXAM: 04/10/2020 HISTORY: Pain Comparison: None.Single KUB is submitted for interpretation. Findings: Right renal calculi: 1.6 cm calculus is noted overlying the lower pole of the right kidney. Additiona l upper pole right-sided renal calculi noted measuring up to 1 cm. Additional lower pole calculi tot aling approximately 4 2. Measuring approximately 7 mm. Right ureteral calculi: None Visualized. Left renal calculi: None Visualized. Left ureteral calculi: None Visualized. Pelvic calcifications: Yes Bowel gas pattern is unremarkable. No free air. No mass effects. IMPRESSION: 1. 1.6 cm calculus is noted overlying the lower pole of the right kidney. Additional upper pole right -sided renal calculi noted measuring up to 1 cm. Additional lower pole calculi totaling approximatel y 4 2. Measuring approximately 7 mm.
== END | disposition home or self-care (01) ==
LOC: RADXRMAIN 12:17
PROVIDERS: ATTEND Urology
DX: N20.0 Calculus of kidney (principal)
CPT/HCPCS: 74018

== ENCOUNTER 2021-03-17 10:20 | Day surgery (SDC) | payer MEDICARE, BC ==
[2021-03-15 09:22] VITALS: BMI 36.7
[~2021-03-17 10:20] MED LIST changes: +ALPRAZolam 0.25 MG TAB PO PRN; +ALPRAZolam 0.5 MG TAB PO PRN; -AMPICILLIN 1,000 MG in SODIUM CHLORIDE 0.9% 50 ML IVPB ONE; +ASPIRIN 325 MG TAB PO ONE; +ATORVASTATIN 80 MG TAB PO ONE; -DEXAMETHASONE SOD PHOSPHATE 10 MG/ML 1 ML VIAL IV ONE; -GENTAMICIN 130 MG in SODIUM CHLORIDE 0.9% 100 ML IVPB ONE; +HEPARIN SODIUM,PORCINE 10,000 UNIT in SODIUM CHLORIDE 0.9% 1,000 ML IRRIGATION PRN; +HEPARIN SODIUM,PORCINE 2,500 UNIT in SODIUM CHLORIDE 0.9% 250 ML IRRIGATION PRN; -HYDROmorphone 0.5 MG/0.5 ML SYRINGE IVP PRN; -LACTATED RINGERS 1,000 ML IV SCH; -LIDOCAINE 1% 20 ML VIAL (10MG/ML) FOR IV START INTRADERMA PRN; -MIDAZOLAM 2 MG/2 ML VIAL IV PRN; +NITROGLYCERIN SL TABS 0.4 MG TAB SUBLINGUAL PRN; -ONDANSETRON 4 MG/2 ML VIAL IVP ONE; -SCOPOLAMINE 1.5MG/72HR PATCH TRANSDERM ONE; +SODIUM CHLORIDE 0.9% 1,000 ML in EMPTY BAG 1 BAG IV ONE
[2021-03-17 10:55] LABS: Basophils % (A) 0 %; Eosinophils # (A) 0.6 k/uL (0-0.7); Eosinophils % (A) 6 %; HCT 43.4 % (39.0-53.0); HGB 14.7 gm/dL (13.0-17.5); Lymphocytes # (A) 2.1 k/uL (1.0-4.8); Lymphocytes % (A) 22 %; MCH 31.5 pg (25.0-35.0); MCHC 33.8 g/dL (31.0-37.0); MCV 93.2 fL (80.0-100.0); Mean Platelet Volume 8.2; Monocytes # (A) 0.8 k/uL (0-1.0); Monocytes % (A) 9 %; Neutrophils # (A) 5.8 k/uL (1.3-7.7); Neutrophils % (A) 61 %; Platelet Count 170 k/uL (150-450); RBC 4.66 m/uL (4.30-5.90); WBC 9.5 k/uL (3.8-10.6)
[2021-03-17 11:08] LABS: Calcium 10.4 mg/dL (8.4-10.2); Potassium 5.2 mmol/L (3.5-5.1)
[2021-03-17 11:44] LABS: INR 1.3 (<1.2); Prothrombin Time 12.9 sec (9.0-12.0)
[2021-03-17] MEDS ORDERED: VERAPAMIL 2.5 MG/ML 2 ML AMP ONE (12:06)
[2021-03-17] MEDS ORDERED: LIDOCAINE 1% INJ 10MG/ML (20 ML MDV) ONE (12:07)
[2021-03-17] MEDS ORDERED: fentaNYL (PF) 50 MCG/ML 2 ML AMP ONE (12:16)
[2021-03-17] MEDS ORDERED: fentaNYL (PF) 50 MCG/ML 2 ML AMP IV ONE (12:20)
[2021-03-17] MEDS ORDERED: LIDOCAINE 1% INJ 10MG/ML (20 ML MDV) SQ ONE (12:20)
[2021-03-17] MEDS ORDERED: VERAPAMIL SYRINGE (5 MG/10 ML) INTRAARTER ONE (12:24)
[2021-03-17] MEDS ORDERED: CLOPIDOGREL 75 MG TAB ONE (12:32)
[2021-03-17] MEDS ORDERED: HEPARIN SODIUM 1,000 UN/ML (10ML VL) IV ONE (12:32)
[2021-03-17] MEDS ORDERED: CLOPIDOGREL 75 MG TAB PO ONE (12:37)
[2021-03-17] MEDS ORDERED: IOPAMIDOL-370 125ML BTL INJ ONE ×2 (12:46→12:47)
[2021-03-17] MEDS ORDERED: MAG HYDROX/AL HYDROX/SIMETH 30 ML CUP PO PRN (13:00)
[2021-03-17] MEDS ORDERED: SODIUM CHLORIDE 0.9% 1,000 ML IV SCH (13:00)
[2021-03-17] MEDS ORDERED: ZOLPIDEM 5 MG TAB PO PRN (13:00)
[2021-03-17] MEDS ORDERED: ATROPINE SULFATE 0.1 MG/ML 10ML SYRINGE IV PRN (13:00)
[2021-03-17] MEDS ORDERED: NITROGLYCERIN SL TABS 0.4 MG TAB SUBLINGUAL PRN (13:00)
[2021-03-17] MEDS ORDERED: RX INFO: IV CONTRAST WAS GIVEN 1 EACH MISC MISCELLANE PRN (13:00)
--- NOTE | 2021-03-17 14:41 | CC ---
CARDIAC CATHETERIZATION REPORT Mr. Oscar is an 80-year-old male with known history of hypertension, hyperlipidemia, chronic atrial fibrillation, who presented with symptoms of exertional chest discomfort and abnormal myocardial perfusion imaging. In view of that, recommendation was made regarding cardiac catheterization. The procedure as well as the risks and the complications were discussed with the patient who is in full understanding and agreement. PROCEDURE: Patient was brought to the slab grinder in a fasting semi-sedated state after receiving fentanyl and Benadryl and achieving moderate conscious sedated state. Using Xylocaine anesthesia and Seldinger technique, a 6-Paraguayan sheath was introduced in the right radial artery. Selective right and left coronary angiography were performed using 5- Paraguayan 3.5 bend right and left Blanca catheter. Multiple views of the coronary artery including hemiaxial views were obtained. Following that, 5-Paraguayan tight pigtail catheter was introduced in the left ventricle and pressures were calculated. Following that, catheters were removed, images were reviewed. FINDINGS: LEFT MAIN: This is a large-sized vessel, bifurcating into left circumflex, left anterior descending artery. Left main coronary artery has no evidence of high-grade stenosis. LEFT ANTERIOR DESCENDING ARTERY: This is a large-sized vessel reaching to the apex with a wraparound apex segment giving rise to a large diagonal branch proximally. The diagonal branch has an 80% stenosis. The LAD after the takeoff of the diagonal branch has a 30% to 40% plaque. The rest of the vessel has no high-grade stenosis. LEFT CIRCUMFLEX: This is a large dominant vessel, giving rise to 3 obtuse marginal branches and distally bifurcating into PDA and posterolateral segment and branches. The left circumflex as well as branches have no evidence of obstructive coronary artery disease. RIGHT CORONARY ARTERY: This is a small nondominant vessel that has a 30% to 40% plaque proximally. The rest of the vessel has no high-grade stenosis. LEFT VENTRICULOGRAM: Left ventriculogram was not performed. HEMODYNAMICS: There was no gradient across the aortic valve. The left ventricular end-diastolic pressure is 10 to 14 mmHg. CONCLUSION: 1. Critical stenosis involving the first diagonal branch. 2. Mild disease in the LAD and the nondominant right coronary artery. 3. Left dominance. RECOMMENDATION: In view of finding anatomy, I recommend proceeding with angioplasty and stenting of the diagonal branch. The procedure as well as the risks and the complications were discussed with the patient who is in full understanding and agreement. MMODL / IJN: [id number] /
--- NOTE | 2021-03-17 14:46 | PTCA ---
PERCUTANEOUSTRANS CORORONARY ANGIOGRAPHY Mr. Oscar is an 80-year-old male with a known history of hypertension, hyperlipidemia, history of chronic atrial fibrillation, who has been having chest discomfort and abnormal myocardial perfusion imaging, underwent cardiac catheterization was found to have critical stenosis involving the large first diagonal branch. In view of that, recommendation was made regarding angioplasty and stenting. The procedure as well as the risks and the complications were discussed with the patient who is in full understanding and agreement. PROCEDURE: A 6-Serbian EBU 3.75 guiding catheter introduced in the system. After cannulating the left main, a 0.014 balanced medium weight J-wire was advanced across the lesion, positioned in distal diagonal branch. Subsequently a 3.25 x 18 mm Xience Maria Ines stent was advanced, deployed and post dilated at 16 atmospheres. After the last inflation, after appropriate wait, the balloon and the guidewire were withdrawn back in the guiding catheter. Images were obtained and repeated. Those images reveal stable successful stenting. At that point, the guiding catheter, the balloon and the guidewire were removed. The sheath was removed. Hemostasis was obtained with deployment of a TR band. There was no immediate complication. The patient was returned to his room in stable condition. Of note, the patient had no chest discomfort or EKG changes with the inflation. He received a total of 9000 units of intravenous heparin as well as oral loading dose of clopidogrel. His ACT was followed. RESULTS: Successful stenting of a large first diagonal branch with reduction of stenosis from 80% to 0%. RECOMMENDATION: Patient will be continued on aspirin, Plavix, beta raul, statin and FABI inhibitor. He will be restarted back on his anticoagulation in the form of Eliquis and subsequently his aspirin will be stopped and be continued on the Plavix and Eliquis. Those findings and recommendations were discussed with the patient and his family and they are in full understanding and agreement. Duration of the sedation is 30 minutes. MMODL / IJN: [id number] /
[2021-03-17] MEDS: MIDODRINE 5 MG TAB PO SCH (17:03)
[2021-03-17 17:25] LABS: Glucose,Whole Blood 115 mg/dL (75-99)
[2021-03-17] MEDS: TAMSULOSIN 0.4 MG CAP.ER.24H PO SCH (19:33)
[2021-03-17] MEDS: METOPROLOL TARTRATE 50 MG TAB PO SCH (19:33)
[2021-03-17 20:04] LABS: Glucose,Whole Blood 125 mg/dL (75-99)
[2021-03-17] MEDS: FLUTICASONE 110 MCG INHALER INHALATION SCH (20:21)
[2021-03-17] MEDS ORDERED: ATORVASTATIN 40 MG TAB PO SCH (21:00)
[2021-03-18 06:19] LABS: African American GFR (CKD) 64 (>60 ml/min/1.73 sqM); Anion Gap 4 mmol/L; Blood Urea Nitrogen 31 mg/dL (9-20); Calcium 9.7 mg/dL (8.4-10.2); Carbon Dioxide 28 mmol/L (22-30); Chloride 105 mmol/L (98-107); Glucose 92 mg/dL (74-99); Non-African American GFR(CKD) 56 (>60 ml/min/1.73 sqM); Sodium 137 mmol/L (137-145)
[2021-03-18] MEDS ORDERED: LEVOTHYROXINE 50 MCG TAB PO SCH (06:30)
[2021-03-18 07:10] LABS: Glucose,Whole Blood 111 mg/dL (75-99)
[2021-03-18] MEDS ORDERED: PANTOPRAZOLE 40 MG TABLET PO SCH (07:30)
[2021-03-18] MEDS: FLUTICASONE 110 MCG INHALER INHALATION SCH (07:41)
[2021-03-18 07:44] VITALS: BP 109/80; PULSE 72; RESP 19; TEMP 97.3
[2021-03-18] MEDS: METOPROLOL TARTRATE 50 MG TAB PO SCH (08:36)
[2021-03-18] MEDS: MIDODRINE 5 MG TAB PO SCH (08:37)
[2021-03-18] MEDS: TAMSULOSIN 0.4 MG CAP.ER.24H PO SCH (08:37)
[2021-03-18] MEDS ORDERED: APIXABAN 5 MG TAB PO SCH (09:00)
[2021-03-18] MEDS ORDERED: CLOPIDOGREL 75 MG TAB PO SCH (09:00)
[2021-03-18] MEDS ORDERED: FLUTICASONE 50MCG/SPRAY NASAL 16GM EA NOSTRIL SCH (09:00)
[2021-03-18] MEDS ORDERED: ASPIRIN 81 MG PO SCH (09:00)
[2021-03-18] MEDS ORDERED: SPIRONOLACTONE 25 MG TAB PO SCH (09:00)
[2021-03-18] MEDS ORDERED: EZETIMIBE 10 MG TAB PO SCH (09:00)
--- NOTE | 2021-03-18 09:29 | PN ---
PROGRESS NOTE Mr. Oscar is an 80-year-old male, history of chronic persistent atrial fibrillation, hypertension, hyperlipidemia, who presented with symptoms of exertional chest discomfort and abnormal myocardial perfusion imaging, underwent cardiac catheterization was found to have critical stenosis in the first diagonal branch, underwent stenting of that vessel. He is doing well this morning, ambulating without difficulty, denying any chest pain. No dizziness. No palpitation. No nausea. He continues to be in atrial fibrillation. He continues to be on aspirin once a day, Lipitor 40 mg daily, Plavix 75 mg daily, Zetia 10 mg daily, levothyroxine, metoprolol tartrate 50 mg twice a day, spironolactone 25 mg daily, Flomax 0.4 mg twice a day. PHYSICAL EXAMINATION: Blood pressure 111/70 with the heart rate in the 60s. LUNGS: Clear. HEART: Irregular, irregular. S1, S2. No S3. No rub. ABDOMEN: Soft, nontender. EXTREMITIES: No edema. Right radial pulse intact. EKG revealed atrial fibrillation with no acute changes. LAB DATA: Lab data revealed BUN and creatinine 31 and 1.22, potassium 5.0. IMPRESSION: 1. Status post stenting of the first diagonal branch. 2. Chronic persistent atrial fibrillation. 3. Hypertension. 4. Hyperlipidemia. RECOMMENDATION: Patient will be started on Eliquis 5 mg twice a day. He will continue on the aspirin and Plavix. The aspirin will be stopped in 1 week and he will continue Plavix and Eliquis. Depending on his progress, further recommendation will be made. MMODL / IJN: [id number] /
== END 2021-03-18 11:28 | disposition home or self-care (01) ==
LOC: CATHCVL 10:20 → 6NMEDSUR 12:48 → CATHCVL 03-18 11:28
PROVIDERS: ATTEND Internal Medicine Interventional Cardiology
DX: I25.10 Atherosclerotic heart disease of native coronary artery without angina pectoris (principal); I48.19 Other persistent atrial fibrillation; Z79.01 Long term (current) use of anticoagulants; E78.5 Hyperlipidemia, unspecified; I10 Essential (primary) hypertension; Z79.899 Other long term (current) drug therapy; Z98.890 Other specified postprocedural states; Z87.891 Personal history of nicotine dependence; Z20.822 Contact with and (suspected) exposure to COVID-19
CPT/HCPCS: 94640 ×2; 93458; 80048 ×2; 85025; 85610; 87635; C9600; C1769 ×2; C1887; C1894; C1874; J2001; J3010; J1644; Q9967

== ENCOUNTER → 2021-06-21 | Outpatient (CLI) | payer MEDICARE, BC ==
--- NOTE | 2021-06-21 11:55 | XR ---
EXAMINATION TYPE: XR KUB DATE OF EXAM: 06/21/2021 11:24 AM CLINICAL HISTORY: Right-sided kidney stone. History of left nephrectomy 8 years ago. TECHNIQUE: Two supplying KUB images of the abdomen are obtained. COMPARISON: CT abdomen June 22, 2017. Most recent abdominal x-ray April 10, 2020 FINDINGS: Persistent large 2.5 cm lower pole right renal calculus with smaller adjacent inferior calc eva. Persistent two lateral right upper renal calculi up to 12 mm. Surgical changes from left-sided n ephrectomy redemonstrated. No significant change from most recent x-ray. Overall nonobstructive bowel gas pattern. Sclerotic round lesion near left sacroiliac joint favors be nign bone island. Lung bases not included. IMPRESSION: As above.
== END | disposition home or self-care (01) ==
LOC: RADXRMAIN 11:07
PROVIDERS: ATTEND Urology
DX: N20.0 Calculus of kidney (principal)
CPT/HCPCS: 74018

== ENCOUNTER 2021-11-19 05:42 | Day surgery (SDC) | payer MEDICARE, BC ==
[2021-11-16 15:59] VITALS: BMI 38.7
[2021-11-19] MEDS ORDERED: ASPIRIN 325 MG TAB PO STA (06:06)
[2021-11-19] MEDS ORDERED: ALPRAZolam 0.5 MG TAB PO PRN (06:06)
[2021-11-19] MEDS ORDERED: SODIUM CHLORIDE 0.9% 1,000 ML in EMPTY BAG 1 BAG IV SCH (06:06)
[2021-11-19] MEDS ORDERED: HEPARIN SODIUM,PORCINE 2,500 UNIT in SODIUM CHLORIDE 0.9% 250 ML IRRIGATION PRN (06:06)
[2021-11-19] MEDS ORDERED: ALPRAZolam 0.25 MG TAB PO PRN (06:06)
[2021-11-19] MEDS ORDERED: ATORVASTATIN 80 MG TAB PO STA (06:06)
[2021-11-19] MEDS ORDERED: HEPARIN SODIUM,PORCINE 10,000 UNIT in SODIUM CHLORIDE 0.9% 1,000 ML IRRIGATION PRN (06:06)
[2021-11-19] MEDS ORDERED: NITROGLYCERIN SL TABS 0.4 MG TAB SUBLINGUAL PRN (06:06)
[2021-11-19 06:38] VITALS: TEMP 98.5
[2021-11-19 06:52] LABS: Calcium 10.2 mg/dL (8.4-10.2); Potassium 4.7 mmol/L (3.5-5.1)
[2021-11-19 06:53] LABS: Basophils % (A) 0 %; Eosinophils # (A) 0.4 k/uL (0-0.7); Eosinophils % (A) 5 %; HCT 44.8 % (39.0-53.0); HGB 14.5 gm/dL (13.0-17.5); Lymphocytes # (A) 2.1 k/uL (1.0-4.8); Lymphocytes % (A) 24 %; MCH 30.4 pg (25.0-35.0); MCHC 32.3 g/dL (31.0-37.0); MCV 94.3 fL (80.0-100.0); Mean Platelet Volume 8.4; Monocytes # (A) 0.7 k/uL (0-1.0); Monocytes % (A) 8 %; Neutrophils # (A) 5.2 k/uL (1.3-7.7); Neutrophils % (A) 59 %; Platelet Count 198 k/uL (150-450); RBC 4.75 m/uL (4.30-5.90); RDW 13.8 % (11.5-15.5); WBC 8.8 k/uL (3.8-10.6)
[2021-11-19] MEDS ORDERED: fentaNYL (PF) 50 MCG/ML 2 ML AMP ONE (07:29)
[2021-11-19] MEDS ORDERED: fentaNYL (PF) 50 MCG/ML 2 ML AMP IV ONE (07:35)
[2021-11-19] MEDS ORDERED: LIDOCAINE 1% INJ 10MG/ML (20 ML MDV) SQ ONE (07:41)
[2021-11-19] MEDS ORDERED: VERAPAMIL SYRINGE (5 MG/10 ML) INTRAARTER ONE (07:45)
[2021-11-19] MEDS ORDERED: IOPAMIDOL-370 125ML BTL INJ ONE (07:54)
[2021-11-19] MEDS ORDERED: RX INFO: IV CONTRAST WAS GIVEN 1 EACH MISC MISCELLANE PRN (08:06)
[2021-11-19] MEDS ORDERED: ALBUTEROL NEBULIZED 2.5 MG/3 ML INHALATION PRN (08:07)
[2021-11-19] MEDS ORDERED: SODIUM CHLORIDE 0.9% 1,000 ML IV SCH (08:15)
--- NOTE | 2021-11-19 08:17 | P.CARDCATH ---
Description of Procedure: CARDIAC CATHETERIZATION REPORT CLINICAL HISTORY: The patient is an 80-year-old male with known history of CAD, post stenting of the diagonal branch, history of hypertension, hyperlipidemia and persistent atrial fibrillation who has been complaining of chest discomfort, improving with nitroglycerin sublingually and reminding him of the way he felt prior to the stent. In view of that recommendations were made regarding cardiac catheterization, the procedure as well as the risk and she the complication were discussed with the patient was in full agreement and understanding. PROCEDURE: The patient was brought to the cardiac catheterization lab in a fasting, semi-sedated state after receiving Versed and Benadryl. The patient was prepped and draped in the conventional fashion. Using Xylocaine anesthesia, in the Seldinger technique, a 6 German sheath was introduced in the right radial artery. Selective right and left coronary angiography performed using 5 German, 3-1/2 bend right and left Blanca catheter. Multiple views of the coronary artery, including hemiaxial views were obtained. Following that, the right Judk ins catheter was introduced in the left ventricle and pressure of the left ventricle was obtained. At the end of the procedure the catheter and sheath were removed. Hemostasis was obtained with [deployment of a TR band]. The patient received 5000 units of intravenous heparin and intra-arterial verapamil. There were no immediate complications. The patient was returned to the room in stable condition. SELECTIVE CORONARY ARTERIOGRAPHY: LEFT MAIN CORONARY ARTERY: [This is a large size vessel, bifurcating into LAD and left circumflex, left main has no evidence of high-grade stenosis.] LEFT ANTERIOR DESCENDING CORONARY ARTERY: This is a large size vessel, giving rise to a proximal diagonal branch. The stented segment in the diagonal branch was patent. The LAD at the takeoff of the diagonal branch has a 30-40% plaque. The rest of the vessel has no high-grade stenosis. LEFT CIRCUMFLEX CORONARY ARTERY: This is a dominant vessel, large in caliber, bifurcating distally into PDA and PLV. Giving rise to 3 OM. The left circumflex has no evidence of high-grade stenosis. RIGHT CORONARY ARTERY: This is a small nondominant vessel that has no evidence of high-grade stenosis. LEFT VENTRICULOGRAM: Not performed HEMODYNAMICS: There was no gradient across the aortic valve, LVEDP is 12-14 mmHg CONCLUSION: 1. Patent stent in the diagonal branch. 2. Mild disease in the LAD. 3. Left dominance RECOMMENDATIONS: At this time I see no evidence of progression of disease, I would recommend to continue present therapy with the aggressive coronary risk modification that has been initiated. The findings and recommendations were discussed with the patient and his family and they are in full understanding and agreement. Duration of sedation 14 minutes.
[2021-11-19] MEDS ORDERED: MIDODRINE 5 MG TAB PO SCH (17:30)
[2021-11-19 18:53] VITALS: BP 94/58; PULSE 70; RESP 18
[2021-11-19] MEDS ORDERED: FLUTICASONE 220 MCG INHALER INHALATION SCH (20:00)
[2021-11-19] MEDS ORDERED: METOPROLOL TARTRATE 50 MG TAB PO SCH (21:00)
[2021-11-19] MEDS ORDERED: TAMSULOSIN 0.4 MG CAP.ER.24H PO SCH (21:00)
[2021-11-19] MEDS ORDERED: ATORVASTATIN 40 MG TAB PO SCH (21:00)
[2021-11-19] MEDS ORDERED: CHOLECALCIFEROL 125 MCG (5000 IU) TABLET PO SCH (21:00)
[2021-11-20] MEDS ORDERED: LEVOTHYROXINE 100 MCG TAB PO SCH (06:30)
[2021-11-20] MEDS ORDERED: PANTOPRAZOLE 40 MG TABLET PO SCH (07:30)
[2021-11-20] MEDS ORDERED: IPRATROPIUM 0.5 MG/2.5 ML NEBU INHALATION SCH (08:00)
[2021-11-20] MEDS ORDERED: FORMOTEROL FUMARATE 20 MCG/2 ML NEBU INHALATION SCH (08:00)
[2021-11-20] MEDS ORDERED: CLOPIDOGREL 75 MG TAB PO SCH (09:00)
[2021-11-20] MEDS ORDERED: EZETIMIBE 10 MG TAB PO SCH (09:00)
[2021-11-20] MEDS ORDERED: FLUTICASONE 50MCG/SPRAY NASAL 16GM EA NOSTRIL SCH (09:00)
== END 2021-11-19 12:52 | disposition home or self-care (01) ==
LOC: CATHCVL 05:42
PROVIDERS: ATTEND Internal Medicine Interventional Cardiology
DX: I25.10 Atherosclerotic heart disease of native coronary artery without angina pectoris (principal); Z20.822 Contact with and (suspected) exposure to COVID-19
CPT/HCPCS: 93458; 80048; 85025; 87635; C1894; C1769; J2001; J3010; J1644; Q9967